=== PATIENT | female | born 1990 | race Caucasian/White ===

== ENCOUNTER 2016-08-11 17:18 | Outpatient (CLI) | payer OTHER ==
--- NOTE | 2016-08-11 18:24 | DIAGNOSTIC IMAGING REPORT ---
PROCEDURE: US COMPLETE PELVIC W/TRANSVAG INDICATION: PELVIC PAIN, initial encounter TECHNIQUE: Transabdominal and endovaginal barajas scale and color Doppler sonographic images of the female pelvis were obtained. COMPARISON: None. FINDINGS: TRANSABDOMINAL SCANS: Normal kidneys. Anteverted uterus. IUD in satisfactory position. TRANSVAGINAL SCANS: The uterus measures 5.2 x 4.4 x 3.8 cm. Myometrium is unremarkable. Endometrium not well visualized. Left ovary measures 2.6 x 2.5 x 1.5 cm with a 1.1 cm follicle. Right ovary measures 2.8 x 1.6 x 1.5 cm with small peripheral follicles. There is vascular flow to both ovaries. No adnexal mass or free fluid the cul-de-sac. IMPRESSION: 1. IUD in satisfactory position
== END 2016-08-11 23:00 ==
LOC: US SRH 17:18
DX: R10.2 Pelvic and perineal pain (principal); Z97.5 Presence of (intrauterine) contraceptive device